=== PATIENT | male | born 1960 | race American Indian/Alaskan Native ===

== ENCOUNTER 2016-11-02 15:45 | Emergency (ER) | payer SELFPAY ==
[2016-11-02] MEDS ORDERED: CATAPRES PO ONE (22:20)
--- NOTE | 2016-11-02 22:38 | Emergency Department Report ---
HPI - General Chief Complaint: Medical Clearance Time Seen by Provider: 11/02/16 21:55 - HPI HPI: Room 33 The patient is a 56-year-old male presenting with a chief complaint of hypertension and headache. The patient states he has a history of hypertension but ran out of his hydrocodone thiazide approximately 3-4 days ago. Patient states for the past 2 days his had an intermittent frontal headache. Patient denies nausea or vomiting. Patient denies any other complaints Location: Head Duration: 2 days Quality: Headache Severity: Moderate Modifying factors: [see above] Context: [see above] Mode of transportation: [not driving] ED Past Medical Hx - Past Medical History Previous Medical History?: Yes Hx Hypertension: Yes - Surgical History Past Surgical History?: No - Family History Family history: no significant - Social History Smoking Status: Current Every Day Smoker (1/2 pack per day) Substance Use Type: None (denies illicit drug use), Prescribed - Medications Home Medications: Home Medications Medication Instructions Recorded Confirmed Last Taken Type Hydrochlorothiazide [HCTZ] 25 mg PO QDAY #90 tablet 11/02/16 Unknown Rx ED Review of Systems ROS: Stated complaint: BLOOD PRESSURE Other details as noted in HPI Comment: All other systems reviewed and negative Constitutional: denies: chills, fever Eyes: denies: eye pain, eye discharge, vision change ENT: denies: ear pain, throat pain Respiratory: denies: cough, shortness of breath, wheezing Cardiovascular: denies: chest pain, palpitations Endocrine: no symptoms reported Gastrointestinal: denies: abdominal pain, nausea, diarrhea Genitourinary: denies: urgency, dysuria Musculoskeletal: denies: back pain, joint swelling, arthralgia Skin: denies: rash, lesions Neurological: headache. denies: weakness, paresthesias Psychiatric: denies: anxiety, depression Hematological/Lymphatic: denies: easy bleeding, easy bruising Physical Exam - Physical Exam Vital Signs: Vital Signs 11/02/16 11/02/16 16:56 22:15 Temperature 98.8 F 97.8 F Pulse Rate 122 H 92 H Respiratory 20 16 Rate Blood Pressure 157/115 Blood Pressure 153/99 [Right] O2 Sat by Pulse 97 97 Oximetry Physical Exam: GENERAL: The patient is well-developed well-nourished male lying on stretcher not appearing to be in acute distress. [] HEENT: Normocephalic. Atraumatic. Extraocular motions are intact. Patient has moist mucous membranes. NECK: Supple. Trachea midline CHEST/LUNGS: Clear to auscultation. There is no respiratory distress noted. HEART/CARDIOVASCULAR: Regular. There is no tachycardia. There is no gallop rub or murmur. ABDOMEN: Abdomen is soft, nontender. Patient has normal bowel sounds. There is no abdominal distention. SKIN: There is no rash. There is no edema. There is no diaphoresis. NEURO: The patient is awake, alert, and oriented. The patient is cooperative. The patient has no focal neurologic deficits. The patient has normal speech. Cranial nerves II through XII grossly intact, no drift MUSCULOSKELETAL: There is no evidence of acute injury. ED Course Vital Signs 11/02/16 11/02/16 16:56 22:15 Temperature 98.8 F 97.8 F Pulse Rate 122 H 92 H Respiratory 20 16 Rate Blood Pressure 157/115 Blood Pressure 153/99 [Right] O2 Sat by Pulse 97 97 Oximetry ED Medical Decision Making - Radiology Data Radiology results: report reviewed (CT head), image reviewed (CT head) CT head (read by radiologist)-no acute intracranial hemorrhage, midline shift or pathologic extra-axial fluid collection. 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 There is into digitation of the sulci along the falx. Hyperdense structure within the third ventricle measuring 1.2 x 0.8 cm likely reflects a colloid cyst. Otherwise ventricles and cisterns are normal in size and configuration for the patient's age. No associated obstructive hydrocephalus. - Differential Diagnosis pretensive urgency, hypertension, headache Critical care attestation.: If time is entered above; I have spent that time in minutes in the direct care of this critically ill patient, excluding procedure time. ED Disposition Clinical Impression: Hypertension, Headache, Colloid cyst of brain Disposition: DISCHARGED TO HOME OR SELFCARE Is pt being admited?: No Does the pt Need Aspirin: No Condition: Stable Instructions: Hypertension (ED) Additional Instructions: Return to the emergency department immediately should you develop worsening symptoms, fever, inability to tolerate food or liquid or any other concerns. Prescriptions: Hydrochlorothiazide [HCTZ] 25 mg PO QDAY #90 tablet Referrals: PRIMARY CAREMD [Primary Care Provider] - 3-5 Days SUZAN AGUILERA MD [Staff Physician] - 3-5 Days Time of Disposition: 00:15
--- NOTE | 2016-11-03 00:11 | Cat Scan Report ---
FINAL REPORT EXAM: CT HEAD/BRAIN WO CON HISTORY: hypertension, headache COMPARISON: None available. TECHNIQUE: Axial images obtained skull base through vertex. FINDINGS: No acute intracranial hemorrhage, midline shift or pathologic extra axial fluid collection. There partial absence of the corpus callosum. There is interdigitation of the sulci along the falx. Hyperdense structure within the 3rd ventricle measuring 1.2 x 0.8 centimeters likely reflects a colloid cyst. Otherwise, ventricles and cisterns are normal in size and configuration for the patient's age. Butt-white differentiation preserved. Calvarium grossly intact. Mild mucosal thickening ethmoid air cells. Mastoid air cells are clear. Visualized orbits are grossly unremarkable. IMPRESSION: No grossly acute intracranial abnormality. Partial absence of the corpus callosum. 1.2 x 0.9 centimeter hyperdense lesion at the superior margin of the 3rd ventricle compatible with colloid cysts. No associated obstructive hydrocephalus.
[2016-11-03 00:17] VITALS: BP 136/88
== END 2016-11-03 00:41 | disposition home or self-care (01) ==
LOC: ED 15:45
DX: I10 Essential (primary) hypertension (principal); R51 Headache; G93.0 Cerebral cysts
CPT/HCPCS: 70450